=== PATIENT | male | born 1965 | race African-American/Black ===

== ENCOUNTER 2020-05-08 16:43 | Emergency (ER) | payer OTHER ==
[~2020-05-08] VITALS: Ht 175.3 cm; Wt 71.2 kg
[2020-05-08 17:00] VITALS: Ht 175.3 cm; Wt 71.2 kg
[2020-05-08 18:28] VITALS: BP 123/73
== END 2020-05-08 18:28 | disposition home or self-care (01) ==
LOC: ED 16:43
DX: M54.5 Low back pain (principal); G89.29 Other chronic pain